=== PATIENT | male | born 2000 | race Two or more races ===

== ENCOUNTER 2021-07-30 01:57 | Emergency (ER) | payer SELFPAY ==
[~2021-07-30] VITALS: Ht 180.3 cm; Wt 70.3 kg
[2021-07-30] MEDS ORDERED: HYDROcodone-ACET 5/325MG TAB PO ONE (05:15)
[2021-07-30] MEDS ORDERED: SODIUM CHLORIDE 0.9% 1,000 ML IV ONE (07:30)
[2021-07-30] MEDS ORDERED: SODIUM CHLORIDE 0.9% 500 ML IVB ONE (07:30)
[2021-07-30 08:50] LABS: Urine Bacteria FEW /hpf (None Seen); Urine Blood Negative /uL (Negative); Urine Specific Gravity 1.002 (1.001-1.035); Urine WBC 1 /hpf (0 - 3)
[2021-07-30 09:07] LABS: Basophils # (auto) 0.1 10 ^3/uL (0-0.2); Basophils % (auto) 0.6 % (0.0-2.0); Eosinophils # (auto) 0.1 10 ^3/uL (0-0.8); Eosinophils % (auto) 0.8 % (0.0-7.0); Hematocrit 45.1 % (41.0-53.0); Hemoglobin 15.5 g/dL (13.5-17.5); Lymphocytes # (auto) 3.2 10 ^3/uL (0.4-5.4); Lymphocytes % (auto) 29.6 % (10.0-50.0); Mean Corpuscular Hemoglobin 31.9 pg (28.0-32.0); Mean Corpuscular Hgb Conc. 34.3 g/dL (32.0-36.0); Mean Corpuscular Volume 93.2 fL (80.0-100.0); Monocytes # (auto) 0.7 10 ^3/uL (0-1.3); Monocytes % (auto) 6.8 % (0.0-12.0); Neutrophils # (auto) 6.8 10 ^3/uL (1.6-8.6); Neutrophils % (auto) 62.2 % (37.0-80.0); Nucleated Red Blood Cells % 0.1 %; Red Blood Cells 4.84 10^6/uL (4.5-5.90); Red Cell Distribution Width 13.6 % (11.8-14.3); White Blood Cell 10.9 10^3/uL (4.4-10.8)
[2021-07-30 09:13] LABS: Amphetamine Screen, Urine NEGATIVE (NEGATIVE); Barbiturate Scree,Urine NEGATIVE (NEGATIVE); Benzodiazephine Screen, Urine NEGATIVE (NEGATIVE); Cannabinoid Screen, Urine POSITIVE (NEGATIVE); Cocaine Screen, Urine NEGATIVE (NEGATIVE); Opiate Scree,Urine NEGATIVE (NEGATIVE)
[2021-07-30 09:19] LABS: Phencyclidine Screen, Urine NEGATIVE (NEGATIVE)
[2021-07-30 09:24] LABS: Albumin 3.7 g/dL (3.4-5.0); Calcium 8.7 mg/dL (8.5-10.1); Magnesium 2.5 mg/dL (1.6-2.6); Potassium 3.8 mmol/L (3.5-5.1)
[2021-07-30 09:28] LABS: BUN/Creatinine Ratio 7.1; Bilirubin, Total 0.6 mg/dL (0.2-1.0); Total Protein 7.3 g/dL (6.4-8.2)
[2021-07-30] MEDS ORDERED: KETOROLAC TROMETH 30 MG/ML 1ML VIAL IV ONE (12:45)
[2021-07-30] MEDS ORDERED: LIDOCAINE 2%HCL (LOCAL ANESTH.) INJ 10ml MDV IJ ONE (12:45)
[2021-07-30 13:43] VITALS: BP 126/81
[2021-07-30] MEDS ORDERED: NEOMYCIN-BACITRACIN-POLYM UNITDOSE PKG TOP OINT TOP ONE (13:45)
[2021-08-01] MEDS ORDERED: NAP500T PO (18:16)
[2021-08-01] MEDS ORDERED: CEFD300C2 PO (18:17)
[2021-08-01] MEDS ORDERED: NEOM1OIN18 EX (18:17)
== END 2021-07-30 14:12 | disposition home or self-care (01) ==
LOC: ER 02:05
DX: S61.411A Laceration without foreign body of right hand, initial encounter (principal); G40.909 Epilepsy, unspecified, not intractable, without status epilepticus; W18.39XA Other fall on same level, initial encounter; Y93.89 Activity, other specified; Y92.89 Other specified places as the place of occurrence of the external cause; Y99.8 Other external cause status
CPT/HCPCS: 12001; 36415; 73130; 80053; 80307; 81001; 83735; 85025; 96365; 96375; 99285; J1885; J1953; J2001; J7060

== ENCOUNTER 2023-02-28 18:37 | Emergency (ER) | payer OTHER ==
[~2023-02-28] VITALS: Ht 177.8 cm; Wt 72.5 kg
[~2023-02-28 18:37] MED LIST: CEFD300C2 PO; NAP500T PO; NEOM-48 EX
[2023-02-28] MEDS ORDERED: KEP500T PO ×3 (18:51→18:58)
[2023-02-28] MEDS ORDERED: levETIRAcetam 1000 mg/100ml 100 ML IV ONE (19:00)
[2023-02-28 20:02] VITALS: BP 146/87; PULSE 59; RESP 16; TEMP 98.1; O2SAT 100
== END 2023-02-28 19:39 | disposition home or self-care (01) ==
LOC: ER 18:37
DX: G40.909 Epilepsy, unspecified, not intractable, without status epilepticus (principal); Z91.148 Patient's other noncompliance with medication regimen for other reason
CPT/HCPCS: 82962; 96365; 99284; J1953

== ENCOUNTER 2024-11-03 00:09 | Emergency (ER) | payer OTHER ==
[~2024-11-03] VITALS: Ht 177.8 cm; Wt 69.2 kg
[~2024-11-03 00:09] MED LIST changes: +KEP500T PO
--- NOTE | 2024-11-03 00:29 | ED.PDOC ---
History of Present Illness HPI Comments 24-year-old male complains of left testicle pain for the last 1 month. The pain radiates to his back and buttock at times. Worse with movement. Patient reports some mild dysuria and clear penile discharge as well Chief Complaint: Testicle Pain Time Seen by MD: 00:11 Primary Care Provider: out of area Allergies: Coded Allergies: NO KNOWN ALLERGIES (Unverified , 07/30/21) Home Meds Active Scripts Doxycycline (Monohydrate) (Doxycycline) 100 Mg Cap, 100 MG PO BID for 10 Days, #20 CAP Prov:BERONICA EDWARD MD 11/03/24 Doxycycline (Monohydrate) (Doxycycline) 100 Mg Cap, 100 MG PO BID for 10 Days, #20 CAP Prov:BERONICA EDWARD MD 11/03/24 Levetiracetam (KEPPRA TABLET) 500 Mg Tb, 500 MG PO BID for 60 Days, #120 TAB Prov:LACEY SUAREZ MD 02/28/23 Cefdinir (Cefdinir) 300 Mg Cap, 1 CAP PO BID for 5 Days, #10 CAP Prov:POLY GILBERT MD 08/01/21 Onkxivmn-Xqczotemvo-Xrupouukw (Neosporin Original) Original Oin, 1 ML EX BID for 7 Days, #1 BOTTLE Prov:POLY GILBERT MD 08/01/21 Naproxen (NAPROSYN TABLET) 500 Mg Tb, 1 TAB PO BID for 10 Days, #20 TAB 1 Refill Prov:POLY GILBERT MD 08/01/21 Information Source: Patient Mode of Arrival: Ambulatory Severity: Moderate Timing: Weeks Duration: Since onset Past Medical History PAST MEDICAL HISTORY: Seizures Surgical History: Denies all surgeries Family History Family History: Reviewed,noncontributory to illness Social History Smoker: Non-Smoker Alcohol: Denies ETOH Use Drugs: Denies Drug Use Lives In: Home Genitourinary: reports: dysuria, penile discharge, testicle pain Musculoskeletal: reports: back pain Physical Exam General Appearance: Mild Distress HEENT: Normal ENT Inspection, Pharynx Normal, TMs Normal Neck: Full Range of Motion, Non-Tender, Normal, Normal Inspection Respiratory: Chest Non-Tender, Lungs Clear, No Accessory Muscle Use, No Respiratory Distress, Normal Breath Sounds Cardiovascular: No Edema, No JVD, No Murmur, No Gallop, Normal Peripheral Pulses, Regular Rate/Rhythm Breast Exam: Deferred Gastrointestinal: No Organomegaly, Non Tender, No Pulsatile Mass, Normal Bowel Sounds, Soft Genitalia: Testicle (left testicle tenderness, no swelling or mass) Pelvic: Deferred Rectal: Deferred Extremities: No calf tenderness, Normal capillary refill, Normal inspection, Normal range of motion, Non-tender, No pedal edema Musculoskeletal : Apperance: Normal Neurologic: Alert, transition social worker II-XII nml as Tested, No Motor Deficits, Normal Affect, Normal Mood, No Sensory Deficits Cerebellar Function: Normal Reflexes: Normal Skin: Dry, Normal Color, Warm Lymphatic: No Adenopathy Was a procedure done? Was a procedure done?: No Differential Dx Considerations may include: Differential diagnosis includes but is not limited to: ureteral colic / stone, Aortic aneurysm or dissection, pyelonephritis, acute renal failure, musculoskeletal etiology and others X-Ray, Labs, Meds, VS Vital Signs Date Time Temp Pulse Resp B/P (MAP) Pulse Ox O2 Delivery O2 Flow Rate FiO2 11/03/24 03:31 93 18 98 Room Air* 0 21 11/03/24 03:20 98.7 93 18 125/80 (95) 98 98.7 11/03/24 00:21 99.0 95 20 117/64 (81) 97 99.0 Lab Test 11/03/24 00:23 11/03/24 00:20 Range/Units White Blood Count 12.2 H 4.4-10.8 10^3/uL Red Blood Count 4.37 L 4.5-5.90 10^6/uL Hemoglobin 14.1 13.5-17.5 g/dL Hematocrit 41.0 41.0-53.0 % Mean Corpuscular Volume 93.8 80.0-100.0 fL Mean Corpuscular Hemoglobin 32.3 H 28.0-32.0 pg Mean Corpuscular Hemoglobin Concent 34.4 32.0-36.0 g/dL Red Cell Distribution Width 12.7 11.8-14.3 % Platelet Count 136 L 140-450 10^3/uL Mean Platelet Volume 10.0 6.9-10.8 fL Neutrophils (%) (Auto) 82.1 H 37.0-80.0 % Lymphocytes (%) (Auto) 10.2 10.0-50.0 % Monocytes (%) (Auto) 7.3 0.0-12.0 % Eosinophils (%) (Auto) 0.1 0.0-7.0 % Basophils (%) (Auto) 0.3 0.0-2.0 % Neutrophils # (Auto) 10.0 H 1.6-8.6 10 ^3/uL Lymphocytes # (Auto) 1.2 0.4-5.4 10 ^3/uL Monocytes # (Auto) 0.9 0-1.3 10 ^3/uL Eosinophils # (Auto) 0 0-0.8 10 ^3/uL Basophils # (Auto) 0 0-0.2 10 ^3/uL Nucleated Red Blood Cells 0.2 % Sodium Level 140 136-145 mmol/L Potassium Level 3.7 3.5-5.1 mmol/L Chloride Level 106 98-107 mmol/L Carbon Dioxide Level 25 20-31 mmol/L Anion Gap 9 5-15 Blood Urea Nitrogen 12 9-23 mg/dL Creatinine 1.05 0.700-1.30 mg/dL Glomerular Filtration Rate Calc 101 >90 mL/min BUN/Creatinine Ratio 11.4 10.0-20.0 Serum Glucose 150 H 74-106 mg/dL Calcium Level 9.5 8.7-10.4 mg/dL Urine Color Yellow Yellow Urine Clarity Clear Clear Urine pH 5.5 5.0-9.0 Urine Specific [place] 1.027 1.001-1.035 Urine Protein 1+ H Negative Urine Ketones 1+ H Negative Urine Blood Negative Negative /uL Urine Nitrite Negative Negative Urine Bilirubin Negative Negative Urine Urobilinogen 2 H Negative mg/dL Urine Leukocyte Esterase Negative Negative /uL Urine RBC 5 0 - 3 /hpf Urine Microscopic WBC 2 0-3 /HPF Urine Squamous Epithelial Cells None seen <5 /hpf Urine Bacteria Few H None Seen /hpf Urine Sperm Present None Seen /hpf Urine Glucose Normal Normal mg/dL Chlamydia trachomatis (JL) Pending Neisseria gonorrhoeae (JL) Pending Current Medications Medications (Trade) Dose Ordered Sig/Bruno Route Start Time Stop Time Status Last Admin Azithromycin (Zithromax Tablet) 1,000 mg ONCE ONCE PO 11/03/24 00:30 11/03/24 00:31 DC 11/03/24 03:11 Ceftriaxone Sodium (Rocephin) 1,000 mg ONCE ONCE IM 11/03/24 03:15 7/29/25 03:16 DC 11/03/24 03:12 Time of 1ST Reevaluation: 00:28 Reevaluation 1ST: Unchanged Patient Education/Counseling: Diagnosis, Treatment Family Education/Counseling: No Family Present SEPSIS Sepsis Screen Physician Orders Testicular Ultrasound (11/03/24 00:11) Chlamydia/Gc Amplification (11/03/24 00:21) Vital Signs Date Time Temp Pulse Resp B/P (MAP) Pulse Ox O2 Delivery O2 Flow Rate FiO2 11/03/24 03:31 93 18 98 Room Air* 0 21 11/03/24 03:20 98.7 93 18 125/80 (95) 98 98.7 11/03/24 00:21 99.0 95 20 117/64 (81) 97 99.0 Laboratory Tests Test 11/03/24 00:23 White Blood Count 12.2 10^3/uL (4.4-10.8) H Medications Medications Dose Ordered Sig/Bruno Route Start Time Stop Time Status Last Admin Dose Admin Azithromycin 1,000 mg ONCE ONCE PO 11/03/24 00:30 11/03/24 00:31 DC 11/03/24 03:11 Ceftriaxone Sodium 1,000 mg ONCE ONCE IM 11/03/24 03:15 11/03/24 03:16 DC 11/03/24 03:12 Departure 1 Departure Time of Disposition: 02:00 Impression: Primary Impression: Hydrocele of testis Additional Impression: Urethritis Disposition: 01 HOME / SELF CARE / HOMELESS Condition: Stable e-Prescriptions Doxycycline (Monohydrate) (Doxycycline) 100 Mg Cap 100 MG PO BID for 10 Days, #20 CAP Prov: BERONICA EDWARD MD 11/03/24 Doxycycline (Monohydrate) (Doxycycline) 100 Mg Cap 100 MG PO BID for 10 Days, #20 CAP Prov: BERONICA EDWARD MD 11/03/24 Discharged With: Self Critical Care Note Critical Care Time?: No Stability Stability form required: No Heart Score Heart Score: Heart Score Response (Comments) Value History N/A 0 EKG N/A 0 Age N/A 0 Risk Factors N/A 0 Troponin N/A 0 Total 0 BERONICA EDWARD MD Nov 03, 2024 00:28
[2024-11-03] MEDS ORDERED: cefTRIAXone W LIDOCAINE 500 MG IM IM ONE (00:30)
[2024-11-03 00:40] LABS: Hematocrit 41.0 % (41.0-53.0); Hemoglobin 14.1 g/dL (13.5-17.5); Mean Corpuscular Hemoglobin 32.3 pg (28.0-32.0); Mean Corpuscular Volume 93.8 fL (80.0-100.0); Nucleated Red Blood Cells % 0.2 %
[2024-11-03 00:47] LABS: Chloride 106 mmol/L (98-107); Potassium 3.7 mmol/L (3.5-5.1); Sodium 140 mmol/L (136-145)
[2024-11-03 00:48] LABS: Anion Gap 9 (5-15); Carbon Dioxide 25 mmol/L (20-31)
[2024-11-03 00:49] LABS: Calcium 9.5 mg/dL (8.7-10.4)
[2024-11-03 00:54] LABS: BUN/Creatinine Ratio 11.4 (10.0-20.0); Blood Urea Nitrogen 12 mg/dL (9-23)
[2024-11-03 01:03] LABS: Glucose 150 mg/dL (74-106)
--- NOTE | 2024-11-03 01:27 | DVH ---
ULTRASOUND OF SCROTUM AND CONTENTS. INDICATION: testicle pain COMPARISON: None TECHNIQUE: Multiple real-time grayscale sonographic and color and duplex Doppler images of the scrotu m and its contents were obtained. FINDINGS: The right testicle measures 4.6 x 1.8 x 1.3 cm. The left testicle measures 3.8 x 2.3 x 1.5 cm. Both testicles demonstrate homogeneous echotexture without evidence of focal lesions. Bilateral micro calcifications noted. Trace left hydrocele. The right epididymal head measures 10.9 cm. The left epididymal head measures 10.3 cm. Subsequent color and duplex Doppler interrogation of the testes demonstrated symmetric normal vascula r flow to both testicles. No focal areas of hyperemia were seen. IMPRESSION: 1. No evidence of torsion, epididymitis, and/or orchitis. 2. Bilateral testicular microlithiasis. 3. Trace left hydrocele.
[2024-11-03] MEDS ORDERED: DOXY100C79 PO (01:32)
[2024-11-03 03:03] LABS: Urine Protein, UAD 1+ (Negative)
[2024-11-03] MEDS: AZITHROMYCIN 250 MG TAB PO ONE (03:11)
[2024-11-03] MEDS: cefTRIAXone SOD 1,000 MG VL IM ONE (03:12)
[2024-11-03 03:20] VITALS: BP 125/80; TEMP 98.7
[2024-11-03] MEDS ORDERED: DOXY1CAP58 PO (03:25)
[2024-11-03 03:31] VITALS: PULSE 93; RESP 18; O2SAT 98
[2024-11-04 16:07] LABS: Chlamydia Trachomatis, NAA Negative (Negative); Neisseria gonorrhoeae, NAA Negative (Negative)
== END 2024-11-03 03:29 | disposition home or self-care (01) ==
LOC: ER 00:09
DX: N43.3 Hydrocele, unspecified (principal); N34.2 Other urethritis
CPT/HCPCS: 36415; 76870; 80048; 81001; 85025; 87491; 87591; 96372; 99285; J0696